=== PATIENT | male | born 1970 ===

== ENCOUNTER 2017-04-05 13:24 | Emergency (ER) | payer BC ==
[2017-04-05 13:37] VITALS: TEMP 97.7
--- NOTE | 2017-04-05 14:44 | ED PDOC ---
HPI: Abdomen Time Seen by Provider: 04/05/17 13:39 Chief Complaint (Nursing): GI Problem Chief Complaint (Provider): Rectal pain History Per: Patient Additional Complaint(s): 46 yo male, no PMH, presents to ED with c/o bright red rectal bleeding x 1 week. Pt states he was seen by his PMD and was DX with hemorrhoids. Pt has been using An[facility] HC IN without relief. Past Medical History Reviewed: Nursing Documentation, Vital Signs Vital Signs: Last Vital Signs Temp 97.7 F 04/05/17 13:35 Pulse 75 04/05/17 14:26 Resp 16 04/05/17 14:26 BP 135/80 04/05/17 14:26 Pulse Ox 100 04/05/17 14:26 - Medical History PMH: No Chronic Diseases - Surgical History Surgical History: No Surg Hx - Family History Family History: States: No Known Family Hx - Living Arrangements Living Arrangements: With Family - Social History Current smoker - smoking cessation education provided: No Alcohol: Social Drugs: Denies - Home Medications Home Medications: Ambulatory Orders Medication Instructions Recorded Docusate [Colace] 100 mg PO DAILY #10 cap 04/05/17 traMADol [Ultram] 50 mg PO Q4 #10 tab 04/05/17 - Allergies Allergies/Adverse Reactions: Allergies Allergy/AdvReac Type Severity Reaction Status Date / Time No Known Allergies Allergy Verified 04/05/17 13:35 Review of Systems ROS Statement: Except As Marked, All Systems Reviewed And Found Negative Gastrointestinal: Positive for: Rectal Pain Physical Exam - Reviewed Nursing Documentation Reviewed: Yes Vital Signs Reviewed: Yes - Physical Exam Appears: Positive for: Well, Non-toxic, No Acute Distress Head Exam: Positive for: ATRAUMATIC, NORMAL INSPECTION, NORMOCEPHALIC Skin: Positive for: Normal Color, Warm, DRY Eye Exam: Positive for: EOMI, Normal appearance, PERRL ENT: Positive for: Normal ENT Inspection Neck: Positive for: Normal, Painless ROM Cardiovascular/Chest: Positive for: Regular Rate, Rhythm Respiratory: Positive for: CNT, Normal Breath Sounds Gastrointestinal/Abdominal: Positive for: Normal Exam, Bowel Sounds, Soft Back: Positive for: Normal Inspection Rectal: Positive for: Hemorrhoids. Negative for: Black Stool, Blood Streaked Stool Extremity: Positive for: Normal ROM Neurologic/Psych: Positive for: Alert, Oriented - ECG O2 Sat by Pulse Oximetry: 100 Medical Decision Making Medical Decision Making: Pt educated on supportive care measures and GI consult advised Disposition - Clinical Impression Clinical Impression: Hemorrhoid - Patient ED Disposition Is Patient to be Admitted: No - Disposition Referrals: Jared Fletcher MD, PhD [Staff Provider] - Disposition: Routine/Home Disposition Time: 14:46 Condition: STABLE Additional Instructions: Continue using rectal suppository medication as previously prescribed Prescriptions: Docusate [Colace] 100 mg PO DAILY #10 cap traMADol [Ultram] 50 mg PO Q4 #10 tab Instructions: Hemorrhoids (ED), Rectal Bleeding (ED) Forms: [facility] ([place]ian)
[2017-04-05 15:12] VITALS: BP 135/80; PULSE 75; RESP 16; O2SAT 100
== END 2017-04-05 14:40 | disposition home or self-care (01) ==
LOC: H.ER 13:24
DX: K64.8 Other hemorrhoids (principal)
CPT/HCPCS: 96372; 99282; J1885